=== PATIENT | female | born 2005 | race Hispanic/Latino ===

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

== ENCOUNTER 2023-03-19 04:30 | Emergency (ER) | payer MEDICAID ==
[~2023-03-19] VITALS: Ht 149.9 cm; Wt 68.0 kg
[2023-03-19 04:31] VITALS: BP 132/87; PULSE 72; RESP 16
[2023-03-19 04:49] LABS: APPEARANCE,URINE CLOUDY (CLEAR); BILIRUBIN,URINE NEGATIVE (NEGATIVE); COLOR,URINE YELLOW (YELLOW); GLUCOSE, URINE (UA) NEGATIVE (NEGATIVE); KETONES,URINE 20 mg/dL (NEGATIVE); LEUKOCYTE ESTERASE ,URINE 500 Leu/uL (NEGATIVE); NITRATE,URINE NEGATIVE (NEGATIVE); PROTEIN,URINE 20 mg/dL (NEGATIVE); UROBILINOGEN,URINE 0.2 mg/dL (0.2-1.0)
[2023-03-19 04:50] LABS: ADD UA MICROSCOPIC YES
[2023-03-19 04:53] LABS: BACTERIA,URINE RARE /HPF (None Seen); MUCUS,URINE MOD LPF (None Seen); SQUAMOUS EPITHELIAL CELL,UR MANY /HPF (0-2)
[2023-03-19 04:56] LABS: HCG,QUALITATIVE URINE POSITIVE (NEGATIVE)
[2023-03-19] MEDS ORDERED: CEPH500B PO (05:25)
== END 2023-03-19 05:35 | disposition home or self-care (01) ==
LOC: EDH 04:30
DX: O23.41 Unspecified infection of urinary tract in pregnancy, first trimester (principal); N39.0 Urinary tract infection, site not specified; O26.891 Other specified pregnancy related conditions, first trimester; K21.9 Gastro-esophageal reflux disease without esophagitis; Z95.2 Presence of prosthetic heart valve
CPT/HCPCS: 81001; 81025; 87088

== ENCOUNTER 2025-01-23 23:58 | Emergency (ER) | payer MEDICAID ==
[~2025-01-23] VITALS: Ht 149.9 cm; Wt 81.6 kg
[~2025-01-23 23:58] MED LIST changes: +CEPH500B PO; +DOXY-466 PO; -DOXY-469 PO
[2025-01-24 00:10] VITALS: BP 106/62; PULSE 84; RESP 18; TEMP 98; O2SAT 98
[2025-01-24] MEDS ORDERED: ERYT1OIN7 OP (01:03)
--- NOTE | 2025-01-24 01:03 | ERN ---
General Chief Complaint: Eye Problems Stated Complaint: EYE PROBLEMS Time Seen by MD: 00:03 Time Seen by Midlevel: 00:03 Source: patient History of Present Illness Initial Comments 19-year-old female who presents to the emergency department due to bilateral eye burning sensation, redness, and discharge. Patient reports she got an last lift last night and burning sensation has been going on since then. The patient denies any sensation of foreign object in her eye, vision change or further associated symptoms. Patient denies significant past medical history. Denies contact use. Allergies: Coded Allergies: No Known Drug Allergies (Unverified Allergy, Unknown, 08/24/22) Home Meds Active Scripts Erythromycin Base (Erythromycin) 5 Mg/Gram (0.5 %) Oint...g., 1 APPL OP QID for 7 Days, #3.5 GM 0 Refills apply 1 cm ribbon into the lower conjunctival sac Prov:TOI MARQUIS 01/24/25 Cephalexin Monohydrate (Keflex) 500 Mg Cap, 500 MG PO QID for 7 Days, #28 CAP Prov:CESAR REYNOSO MD 03/19/23 Pantoprazole Sodium (Protonix) 40 Mg Ectab, 40 MG PO DAILYLUNCH, #15 TAB.EC 0 Refills Prov:LAUREN KITCHEN MD 10/04/22 Doxycycline Monohydrate (Doxycycline Monohydrate) 100 Mg Capsule, 1 CAP PO BID for 10 Days, #20 CAP 0 Refills Prov:LAUREN KITCHEN MD 10/04/22 Promethazine HCl (Promethazine HCl) 25 Mg Tablet, 25 MG PO Q4HPRN PRN for NAUSEA, #15 TAB 0 Refills Prov:LAUREN KITCHEN MD 10/04/22 Ondansetron HCl (Ondansetron HCl) 4 Mg Tablet, 4 MG PO Q6HPRN PRN for NAUSEA /VOMITING, #15 TAB 0 Refills Prov:GONZALEZ MONTALVO 08/26/22 Past Medical History Past Medical History: No Pertinent History Past Surgical History: None Surgical History Other: VALVE REPLACEMENT Family History Family History: HTN Social History Social History: Negative, Lives with family Female( History) LMP: Jan 17, 2025 ROS Dictation Constitutional: Negative for fever,chills, and weight loss Eyes: Positive for bilateral eye redness, burning sensation, discharge ENT: Negative for injury,pain or swelling Cardiovascular: Negative for chest pain, palpitations, and edema Respiratory: Negative for shortness of breath, cough, and wheezing, Abdomen/GI: Negative for abdominal pain, nausea, vomiting, diarrhea, and constipation Back: Negative for injury and pain : Negative for painful urination, bleeding or discharge MS/Extremity: Negative for injury and deformity Skin: Negative for rash, and discoloration Neuro: Negative for headache, weakness, numbness, tingling, and seizure Psych: Negative for suicide ideation, homicidal ideation, and hallucinations Physical Exam Physical Exam Dictation General: awake, alert, no acute distress Head/Face: Normocephalic, atraumatic Eyes: PERRL, EOMI, bilateral conjunctivitis Neck: Supple, normal range of motion Cardiovascular: RRR, normal S1/S2 Respiratory: CTAB, no respiratory distress Skin: Warm, dry, normal turgor, no rash MS/Extremity: Pulses equal, no cyanosis, neurovascular intact, FROM Neuro: COAx4, GCS 15, strength 5/5, CN 2-12 intact, normal cerebellar exam, normal gait Psych: Normal behavior, mood, and affect normal MDM MDM: Differential diagnosis: Conjunctivitis, foreign object, allergic reaction Rationale: 19-year-old female who presents to the emergency department due to bilateral eye burning sensation, redness, and discharge. Patient reports she got an last lift last night and burning sensation has been going on since then. The patient denies any sensation of foreign object in her eye, vision change or further associated symptoms. Patient denies significant past medical history. Denies contact use. Per physical examination conjunctivitis noted bilaterally with drainage. Irrigation performed to both eyes and tetracaine drops were placed which patient verbalized improvement to the burning sensation. Erythromycin placed in the ED and prescribed for outpatient treatment. Patient was educated on findings and diagnosis. Advised to follow up with PCP. Return to the emergency department if any worsening symptoms. Patient verbalized understanding. Patient stable for discharge. There are no social concerns with this patient. I independently interpreted the test that were performed, results were reviewed by me and considered findings on radiology if ordered. Medical management and examination interpretation discussions were had by me with other qualified healthcare professionals as indicated for the patient's care. ED Course Orders Procedure Category Date Status Time Erythrocin 0.5% Ophth PHA 01/24/25 Complete Oint (Erythrocin 0 01:00 Current Medications Medications (Trade) Dose Ordered Sig/Zaria Route PRN Reason Start Time Stop Time Status Last Admin Dose Admin Erythromycin (Erythrocin 0.5% Ophth Oint) 1 appl ONCE ONCE OU 01/24/25 01:00 01/24/25 01:01 DC 01/24/25 01:09 Vital Signs Date Time Temp Pulse Resp B/P (MAP) Pulse Ox O2 Delivery O2 Flow Rate FiO2 01/24/25 00:10 98.1 84 18 106/62 98 Room Air* 0 21 01/24/25 00:00 98.1 84 18 108/60 100 Room Air 0 DX & DISP Disposition: Discharge Departure Impression: Primary Impression: Bacterial conjunctivitis Condition: Stable Scripts Erythromycin Base (Erythromycin) 5 Mg/Gram (0.5 %) Oint...g. 1 APPL OP QID for 7 Days, #3.5 GM 0 Refills apply 1 cm ribbon into the lower conjunctival sac Prov: TOI MARQUIS 01/24/25 Additional Instructions: Discharge home. Rest. Follow up with primary care DrChalino in 24 hours. Return to the ER for any acute changes or worsening symptoms. If any medications were prescribed take as directed. Okay to continue home medications unless otherwise discussed during your visit in the emergency room today. Patient was also advised to follow-up with primary care physician in 1 to 2 days for continued monitoring. Referrals: JESIKA GARSIA (PCP) I performed the substantive portion of the visit. I have reviewed and personally made and approve the management plan that is documented in the notes by myself or the ALFONSO. I acknowledge full responsibility for the patient's management plan. TOI MARQUIS Jan 24, 2025 01:03
[2025-01-24] MEDS: ERYTHROMYCIN BASE 0.5% OPHTH OINT 1 GM TUBE OU ONE (01:09)
== END 2025-01-24 01:31 | disposition home or self-care (01) ==
LOC: EDH 23:58
DX: H10.89 Other conjunctivitis (principal); Z79.899 Other long term (current) drug therapy; Z95.2 Presence of prosthetic heart valve
CPT/HCPCS: 99284